=== PATIENT | male | born 1970 | race African-American/Black ===

== ENCOUNTER → 2016-08-17 | Outpatient (CLI) | payer OTHER ==
--- NOTE | 2016-08-17 14:18 | DIAGNOSTIC IMAGING REPORT ---
VIDEO SWALLOW HISTORY: R13.14 Dysphagia, history of bilateral tonsillectomy and uvulectomy. TECHNIQUE: Video fluoroscopic evaluation of swallowing was performed in the AP and lateral projections by the speech pathology staff. The patient is fed nectar-thick and thin liquid barium, a barium coated wafer, and barium pudding. FLUOROSCOPY TIME: 1.4 minutes.. COMPARISON STUDY: None. FINDINGS: There is normal hyoid excursion and epiglottic deflection. No significant penetration or aspiration identified. Swallowing function is within normal limits. IMPRESSION: 1. Normal study. 2. Please see the speech pathologist report for detailed findings and recommendations. Electronically signed by: Addison Hunter M.D. 08/17/2016 2:17 PM Dictated Date/Time: 08/17/2016 2:16 PM
--- NOTE | 2016-08-17 15:16 | SWALLOWING EVALUATION ---
HISTORY: This 46 year-old man, from home, who was referred for a VFSS at [facility]. He has a PMH significant for tonsillectomy with loss of uvula and reportedly significant scaring of the soft palate and related areas. Currently the patient's diet level is regular with thins. Pt. reports inconsistent difficulty with intake and that he has to consciously swallow and be aware of each bite and drink that he takes. He reports frequent coughing and nasal regurgitation. Pt. reports that he has been dealing with these issues since the surgery 2 years ago. PROCEDURE: The patient was seen in the Radiology Department of [facility] for the VFSS. Cursory examination of the oral cavity revealed adequate dentition. Movement of the articulators was WNL. As noted above pt's uvula and portion of soft pallet have been unintentionally removed. The patient was seated on a stool and was viewed in both the Anterior-Posterior (A-P) and Lateral planes. Volitional phonation exercises completed in the A-P plane revealed bilateral vocal fold movement and vocal intensity within functional limits and not nasal. In the lateral plane, the patient was given the following barium-infused boluses: 1 tsp thin barium with oral hold 1x, self presented single cup swallow-thin barium 2x, self presented serial cup swallow 1x. self presented single cup swallow- nectar thick barium 1x, self presented serial cup swallows 1x. 1 tsp barium pudding-self presented 1x. 1/2 Cracker with barium paste. In the A-P view, pt was given 1 tsp barium pudding with esophageal scan. RESULTS: Oral Phase:Pt. had adequate lip closure and no labial escape of any food or liquid items presented. Pt. had adequate tongue control and bolus hold by demonstrating a cohesive bolus between tongue and palatal seal. Bolus preparation and mastication was WFL as timely and efficient chewing and mashing was observed with all consistencies. Bolus transport and lingual motion were functional as pt. demonstrated brisk tongue motion and no oral residue resulting in complete oral clearance. Initiation of pharyngeal swallow began with bolus head at posterior angle of ramus. * Overall WFL for oral phase of swallow. Pharyngeal Phase:Soft Palate Elevation was complete for all boluses however there was a trace amount of thin liquid barium between the soft palate and pharyngeal wall and the slightest amount of the beginning of nasal regurgitation only seen with thins 1x. Laryngeal elevation was WFL showing complete superior movement of the thyroid cartilage with complete approximation of arytenoids to epiglottic base. Anterior Hyoid excursion was observed with complete anterior movement as well as complete epiglottic inversion. Laryngeal Vestibular closure was complete and no air or barium was noted in laryngeal vestibule. Pharyngeal stripping wave was present and complete. Pharyngeal contraction was complete for all tested items. Pharyngoesophageal segment opening was also WFL showing complete distension and complete duration with no obstruction of flow. Tongue base retraction was noted with all consistencies and tongue base made effective contact with posterior pharyngeal wall throughout study. There was no Pharyngeal residue resulting in complete pharyngeal clearance of all tested items. *Overall WFL for pharyngeal stage of the swallow. * Note- soft palate contact to posterior pharyngeal wall is complete however at a high placement. Esophageal Phase:Opening and closing of the UES was timely and efficient with complete clearance of all tested items. SUMMARY/RECOMMENDATIONS: Overall pt. presents with NO oral or pharyngeal dysphagia. NO aspiration and NO penetration occurred throughout this study. Despite that no overt difficulty occurred throughout this study it is likely that pt will continue to have difficulty with various food items given different texture and viscosities. Pt was educated on oral hold with chin tuck as compensatory strategy and encouraged to continue to independently manage his diet. Recommendin. Regular diet with thin liquids 2. Safe swallowing strategies (small bites, small sips, slow rate) 3. Pt. to make diet modifications as necessary to effectively manage swallowing difficulty. All results and recommendations were discussed with the pt. Thank you for referral of this patient. Please contact me at if any additional information is needed.
== END | disposition home or self-care (01) ==
LOC: C.RAD 13:37
DX: R13.14 Dysphagia, pharyngoesophageal phase (principal)